=== PATIENT | female | born 1940 | race Caucasian/White ===

== ENCOUNTER → 2018-05-27 | Outpatient (CLI) | payer OTHER ==
[~2018-05-27] MED LIST: CALCIUM500 MG PO; CEFTIN500 MG PO; CENTRUM SILVER1 EAC4 PO; FOLIC ACID 40400 MC1 PO; FOLIC ACID 40400 MCG PO; HYDROCHLOROTH12.5 M1 PO; HYDROCODONE-APA1 TA1 PO; LEVOTHYROXIN0.112 M1 PO; MUCINEX TA600 MG/TA2 PO
== END ==
LOC: M.RAD 09:30
DX: Z12.31 Encounter for screening mammogram for malignant neoplasm of breast (principal)

== ENCOUNTER → 2018-09-19 | Outpatient (CLI) | payer OTHER ==
[2018-09-19 11:54] LABS: CALCIUM 9.8 mg/dL (8.5-10.1); CREATININE 1.2 mg/dL (0.6-1.3); POTASSIUM 4.1 mmol/L (3.5-5.1)
== END ==
LOC: M.LAB 11:14
PROVIDERS: Internal Medicine Cardiovascular Disease
DX: I47.1 Supraventricular tachycardia (principal)

== ENCOUNTER → 2019-05-29 | Outpatient (CLI) | payer OTHER | LOC: M.RAD 09:59 | DX: Z12.31 Encounter for screening mammogram for malignant neoplasm of breast (principal) ==

== ENCOUNTER → 2019-06-12 | Outpatient (CLI) | payer OTHER | LOC: M.RAD 13:44 | DX: M43.12 Spondylolisthesis, cervical region (principal); M25.78 Osteophyte, vertebrae; M47.812 Spondylosis without myelopathy or radiculopathy, cervical region ==

== ENCOUNTER → 2019-11-13 | Outpatient (CLI) | payer MEDICARE ==
[2019-11-13 09:21] LABS: HEMATOCRIT 45.1 % (37.0-47.0); HEMOGLOBIN 15.5 gm/dL (12.0-15.0); MCH 31.9 pg (26.0-34.0); MCHC 34.4 g/dL (28.0-37.0); MCV 92.6 fL (80.0-100.0); MPV 8.8 fl. (7.2-11.1); RBC 4.87 mil/uL (4.20-5.00); RDW-CV 13.1 % (10.5-14.5); WBC 5.8 thou/uL (4.0-11.0)
[2019-11-13 09:33] LABS: ALKALINE PHOSPHATASE 81 U/L (46-116); ANION GAP 9 mmol/L (7-16); BUN 27 mg/dL (7-18); CALCIUM 9.3 mg/dL (8.5-10.1); CHLORIDE 104 mmol/L (98-107); CO2 29 mmol/L (21-32); CREATININE 1.2 mg/dL (0.6-1.3); GLUCOSE 108 mg/dL (70-99); POTASSIUM 3.7 mmol/L (3.5-5.1); SGOT 31 U/L (15-37); SGPT 49 U/L (30-65); SODIUM 142 mmol/L (136-145); TOTAL BILIRUBIN 0.8 mg/dL (<0.1-1.0); TOTAL PROTEIN 8.6 g/dL (6.4-8.2)
[2019-11-13 09:44] LABS: CHOLESTEROL 170 mg/dL (<200); HDL CHOLESTEROL 62 mg/dL (>40); LDL CHOLESTEROL 84 mg/dL (<100); TC:HDL 2.7 Ratio (Not establshd); TRIGLYCERIDE 121 mg/dL (<150); VLDL 24 mg/dL (<40)
[2019-11-13 09:49] LABS: SERUM ASSESSMENT Clear
== END ==
LOC: M.LAB 08:53
PROVIDERS: Registered Nurse
DX: E03.9 Hypothyroidism, unspecified (principal); I47.1 Supraventricular tachycardia; I10 Essential (primary) hypertension

== ENCOUNTER → 2019-12-14 | Outpatient (CLI) | payer OTHER | LOC: M.CT 12:28 | DX: Z13.6 Encounter for screening for cardiovascular disorders (principal) ==

== ENCOUNTER → 2019-12-29 | Outpatient (CLI) | payer MEDICARE ==
--- NOTE | 2019-12-29 17:08 | CARDNUC ---
[place] [address] CARDIAC NUCLEAR IMAGING REPORT Name: Roberto VIEYRA Room: [facility]#: [id number] Admission: 12/29/19 Attend Phys: Jesus Gage, Discharge: Date of : 38 Date of Service: 12/29/19 1707 Report #: [id number] THIS REPORT FOR: cc: Wm Alvarado MD, David L. MD Liston, Michael J. MD [facility] ~ APPROVED REPORT Imaging Protocol: Stress Tc-99m/Rest Tc-99m 1 day Study performed: 12/29/2019 09:45:00 Indication: Fatigue, Dyspnea, Chest pain, ABN calcium score. Patient Location: Out-Patient Stress Tech: Alison Brown Stress Nurse: Louise Del Valle RN Ht: 5 ft 5 in Wt: 163 lbs BSA: 1.81 m2 BMI: 27.12 Medical History Medical History: Angina, Arrhythmia, Fatigue, HTN, SOB, ABN calcium score, PSVT, Bradycardia, Hypothyroidism. Medications: Lisinopril. Allergies: No known drug allergies Cardiac Risk Factors: Age, FHX of CAD, HTN, SOB, ABN Calcium score, PSVT, irregular HR, Bradycardia, chest pain. Previous Cardiac Procedures: None Pretest Chest Pain Characteristics: No chest pain Exercise History: Indeterminate Physical Disabilities: Artheritis. Meds Held (24 hrs): None Resting Data Rest SPECT myocardial perfusion imaging was performed in supine position 30 minutes following the intravenous injection of 10.7 mCi of Tc-99m Sestamibi. Time of rest injection: 10:10 The images were gated to evaluate regional wall motion and calculate left ventricular ejection fraction. Administration Route: IV Administration Site: Right AC Pharmacologic Stress Pharmacologic stress test was performed by injecting Regadenoson 0.4 [place] [address] CARDIAC NUCLEAR IMAGING REPORT Name: Roberto VIEYRA [facility] [id number] Admission: 12/29/19 Attend Phys: Jesus Gage, Discharge: Date of : 38 Date of Service: 12/29/19 1707 Report #: [id number] mg IV push over 10-15 seconds immediately followed by the intravenous injection of 31.0 mCi of Tc-99m Sestamibi. Time of stress injection: 12:00 Administration Route: IV Administration Site: Right AC Heart Rate at time of stress injection: 120 bpm. Gated Stress SPECT was performed 45 minutes after stress injection. The images were gated to evaluate regional wall motion and calculate left ventricular ejection fraction. Prone imaging was performed. Stress Test Details Stress Test: Pharmacologic stress testing performed using 0.4 mg of regadenoson per 5 mL given IV over 10 seconds. Reason for pharmacologic stress test: physical limitation, Artheritis.. HR Max Heart Rate (APMHR): 140 bpm Resting HR: 78 bpm Target HR (85% APMHR): 119 bpm Max HR Achieved: 126 bpm % of APMHR: 90 Recovery HR: 102 bpm BP Resting BP: 171/102 mmHg Max BP: 201/77 mmHg Recovery BP: 175/88 mmHg ECG Resting ECG: Sinus Rhythm Stress ECG: Sinus Tachycardia ST Change: None Arrhythmia: VPC's, APC's Recovery ECG: Sinus Rhythm Recovery ST Change: None Recovery Arrhythmia: VPC, APC Clinical Reason for Termination: Completed protocol Stress Symptoms: Lightheadedness. Exercise duration: 00 min 00 sec Exercise capacity: 1.00 METs The patient tolerated Lexiscan infusion without significant cardiac symptoms[place] [address] CARDIAC NUCLEAR IMAGING REPORT Name: Roberto VIEYRA Room: [facility]#: [id number] Admission: 12/29/19 Attend Phys: Jesus Gage, Discharge: Date of : 38 Date of Service: 12/29/19 1707 Report #: [id number] An 79 year old female presented for a sitting Lexiscan r/t ABN calcium score, irregular HR, increased fatigue, Chest Pain, Dyspnea. Test well tolerated. Recovery unremarkable with continued tachycardia. Patient was escorted by staff to Nuclear Medicine for imaging. Patient was stable with continued tachycardia and stated she felt good at that time. Patient did report that during past stress test it took extra recovery time to bring HR down to 103 when taken to Nuclear Medicine. Stress ECG Conclusion The baseline twelve-lead EKG shows sinus rhythm without significant ST segment or T wave abnormality. EKGs obtained during and post Lexiscan infusion show sinus rhythm and sinus tachycardia with no significant ST segment changes when compared to baseline. There were occasional premature atrial and premature ventricular contractions noted during and post Lexiscan stress. No other significant arrhythmias noted. Study Quality Study: Good Artifact: Mild Breast artifact Study Data At rest, the left ventricular ejection fraction was 81%.. Post stress, the left ventricular ejection was 84%.. TID = 0.84. Perfusion Perfusion images obtained in the supine position at rest and post Lexiscan stress show a focal area of mild photopenia in the mid anterior wall that resolves completely with post-rest prone imaging consistent with breast attenuation artifact. There were no significant fixed or reversible defects identified. Wall Motion Normal left ventricular wall motion. Nuclear Conclusion ECG Findings: negative for ischemia Clinical Findings: negative for ischemia Nuclear Findings: negative for ischemia Exercise Capacity: not assessed Left Ventricular Function: normal Risk Study: low Perfusion images show no defect to suggest infarct or ischemia. Left ventricular systolic function appears normal on [place] [address] CARDIAC NUCLEAR IMAGING REPORT Name: Roberto VIEYRA [facility] [id number] Admission: 12/29/19 Attend Phys: Jesus Gage, Discharge: Date of : 38 Date of Service: 12/29/19 1707 Report #: [id number] is a low risk study. <Conclusion> The baseline twelve-lead EKG shows sinus rhythm without significant ST segment or T wave abnormality. EKGs obtained during and post Lexiscan infusion show sinus rhythm and sinus tachycardia with no significant ST segment changes when compared to baseline. There were occasional premature atrial and premature ventricular contractions noted during and post Lexiscan stress. No other significant arrhythmias noted. <ELECTRONICALLY SIGNED> By: Jesus Gage MD, FACC 12/29/191706 06 06 Jesus Gage MD, FACC /INF
== END ==
LOC: M.NUC 12-20 08:31 → M.CRD 01-04 13:30 → M.NUC 01-04 13:30
PROVIDERS: ATTEND Internal Medicine Cardiovascular Disease
DX: I25.10 Atherosclerotic heart disease of native coronary artery without angina pectoris (principal)

== ENCOUNTER → 2020-01-12 | Outpatient (CLI) | payer MEDICARE | LOC: M.RAD 11:33 | PROVIDERS: ATTEND Registered Nurse | DX: R06.09 Other forms of dyspnea (principal) ==

== ENCOUNTER → 2020-02-13 | Outpatient (CLI) | payer MEDICARE | LOC: M.CT 10:36 | PROVIDERS: ATTEND Registered Nurse | DX: R91.8 Other nonspecific abnormal finding of lung field (principal); J84.10 Pulmonary fibrosis, unspecified; J98.4 Other disorders of lung; I25.84 Coronary atherosclerosis due to calcified coronary lesion ==

== ENCOUNTER → 2020-03-01 | Outpatient (CLI) | payer MEDICARE ==
[2020-03-01 10:23] LABS: CREATININE 1.2 mg/dL (0.6-1.3)
== END ==
LOC: M.LAB 10:00 → M.CT 11:00
PROVIDERS: ATTEND Internal Medicine
DX: K57.30 Diverticulosis of large intestine without perforation or abscess without bleeding (principal); I47.1 Supraventricular tachycardia; R91.8 Other nonspecific abnormal finding of lung field

== ENCOUNTER → 2020-05-15 | Outpatient (CLI) | payer MEDICARE | LOC: M.RAD 10:39 | PROVIDERS: ATTEND Internal Medicine | DX: Z12.31 Encounter for screening mammogram for malignant neoplasm of breast (principal) ==

== ENCOUNTER → 2020-11-26 | Outpatient (CLI) | payer MEDICARE | LOC: M.RAD 14:20 | PROVIDERS: ATTEND Internal Medicine | DX: M19.012 Primary osteoarthritis, left shoulder (principal); M47.812 Spondylosis without myelopathy or radiculopathy, cervical region; M40.292 Other kyphosis, cervical region; M25.511 Pain in right shoulder ==

== ENCOUNTER → 2021-01-09 | Outpatient (CLI) | payer MEDICARE | LOC: M.MRI 11:24 | PROVIDERS: ATTEND Orthopaedic Surgery | DX: S43.491A Other sprain of right shoulder joint, initial encounter (principal); M19.011 Primary osteoarthritis, right shoulder; X58.XXXA Exposure to other specified factors, initial encounter; Y93.89 Activity, other specified; Y92.89 Other specified places as the place of occurrence of the external cause; Y99.8 Other external cause status ==

== ENCOUNTER → 2021-02-21 | Outpatient (CLI) | payer MEDICARE | LOC: M.RAD 14:12 | PROVIDERS: ATTEND Orthopaedic Surgery | DX: M16.0 Bilateral primary osteoarthritis of hip (principal); M47.816 Spondylosis without myelopathy or radiculopathy, lumbar region; M46.1 Sacroiliitis, not elsewhere classified; M25.852 Other specified joint disorders, left hip; M25.851 Other specified joint disorders, right hip ==

== ENCOUNTER → 2021-04-21 | Outpatient (CLI) | payer MEDICARE | LOC: M.RAD 14:13 | PROVIDERS: ATTEND Internal Medicine | DX: Z12.31 Encounter for screening mammogram for malignant neoplasm of breast (principal) ==

== ENCOUNTER → 2021-06-06 | Outpatient (CLI) | payer MEDICARE ==
--- NOTE | 2021-06-06 17:16 | CARDNUC ---
[place] [address] CARDIAC NUCLEAR IMAGING REPORT Name: FARHANAARIANAJESSEDMAR SUKHWINDER Room: [facility]#: [id number] Admission: 06/06/21 Attend Phys: Daniella Florian, Discharge: Date of : 38 Date of Service: 06/06/21 1715 Report #: [id number] THIS REPORT FOR: cc: Freddy Alberto MD, Dean L. MD Liston, Michael J. MD [facility] ~ APPROVED REPORT Study performed: 06/06/2021 11:07:59 Exam: Nuclear Stress Test Indication: Dyspnea Patient Location: Out-Patient Stress Nurse: Inna Patel RN Ht: 5 ft 5 in Wt: 159 lbs BSA: 1.79 m2 BMI: 26.45 Medical History Medical History: Arrhythmia, HTN Medications: flecainide, losartan Allergies: No known drug allergies Cardiac Risk Factors: Age, HTN Exercise History: Indeterminate Stress Test Details Stress Test: Pharmacologic stress testing performed using 0.4 mg of regadenoson per 5 mL given IV over 10 seconds. Reason for pharmacologic stress test: physical limitation. HR Resting HR: 93 bpm Max Heart Rate (APMHR): 139 bpm Max HR Achieved: 117 bpm Target HR (85% APMHR): 118 bpm % of APMHR: 84 Recovery HR: 101 bpm BP Resting BP: 165/87 mmHg Max BP: 175/82 mmHg ECG Resting ECG: Sinus Rhythm Stress ECG: Sinus Tachycardia ST Change: [place] [address] CARDIAC NUCLEAR IMAGING REPORT Name: EDMAR VIEYRA Room: [facility]#: [id number] Admission: 06/06/21 Attend Phys: Daniella Florian, Discharge: Date of : 38 Date of Service: 06/06/21 1715 Report #: [id number] Arrhythmia: None Recovery ECG: Sinus Rhythm Recovery ST Change: None Recovery Arrhythmia: None Clinical Reason for Termination: Completed protocol The patient tolerated Lexiscan infusion without significant cardiac symptoms. Stress ECG Conclusion The baseline twelve-lead EKG shows sinus rhythm with no significant ST segment or T wave abnormality. EKGs obtained during and post Lexiscan infusion show sinus rhythm and sinus tachycardia with no significant ST segment or T wave changes when compared to baseline. There were no stress-induced arrhythmias. NM EXAM: Myocardial Perfusion REST/STRESS Resting Data Rest SPECT myocardial perfusion imaging was performed in supine position 30 minutes following the intravenous injection of 10.3 mCi of Tc-99m Sestamibi. Time of rest injection: 10:05 The images were gated to evaluate regional wall motion and calculate left ventricular ejection fraction. Administration Route: IV Administration Site: Right AC Pharmacologic Stress Pharmacologic stress test was performed by injecting Regadenoson 0.4 mg IV push followed by the intravenous injection of 33.2 mCi of Tc-99m Sestamibi. Time of stress injection: 11:05 Administration Route: IV Administration Site: Right AC Heart Rate at time of stress injection: 117 bpm. Gated Stress SPECT was performed 45 minutes after stress injection. The images were gated to evaluate regional wall motion and calculate left ventricular ejection fraction. Prone imaging was performed. Study Quality Study: Good Artifact: [place] [address] CARDIAC NUCLEAR IMAGING REPORT Name: EDMAR VIEYRA Room: [facility]#: [id number] Admission: 06/06/21 Attend Phys: Daniella Florian, Discharge: Date of : 38 Date of Service: 06/06/21 1715 Report #: [id number] Study Data At rest, the left ventricular ejection fraction was 85%.. Post stress, the left ventricular ejection was 84%.. TID = 1.00. Perfusion Perfusion images obtained at rest and post Lexiscan stress showed uniform uptake of the radioisotope throughout the myocardium. There were no defects to suggest infarct or ischemia. Wall Motion Normal left ventricular wall motion. Nuclear Conclusion ECG Findings: negative for ischemia Clinical Findings: negative for ischemia Nuclear Findings: negative for ischemia Exercise Capacity: not assessed Left Ventricular Function: normal Risk Study: low Perfusion images show no defect to suggest infarct or ischemia. Left ventricular systolic function is normal on gated studies. This is a low risk study. <Conclusion> The baseline twelve-lead EKG shows sinus rhythm with no significant ST segment or T wave abnormality. EKGs obtained during and post Lexiscan infusion show sinus rhythm and sinus tachycardia with no significant ST segment or T wave changes when compared to baseline. There were no stress-induced arrhythmias. <ELECTRONICALLY SIGNED> By: Jesus Gage MD, FACC 06/06/211714 14 14 Jesus Gage MD, FACC /INF
== END ==
LOC: M.NUC 05-22 12:58
PROVIDERS: ATTEND Nurse Practitioner
DX: R06.02 Shortness of breath (principal); R93.1 Abnormal findings on diagnostic imaging of heart and coronary circulation